=== PATIENT | female | born 1940 | race Caucasian/White ===

== ENCOUNTER 2019-04-06 20:45 | Inpatient (IN) | payer MEDICARE ==
[~2019-04-06] VITALS: Ht 172.7 cm; Wt 52.2 kg
--- NOTE | 2019-04-06 21:00 | NUR ---
GPS ADMISSION NOTE, RECEIVED PATIENT FROM [facility] [place] [facility]. PATIENT ARRIVED ON THIS UNIT AT 2100 VIA STRETCHER WITH 2 EMT ESCORTS. PATIENT ADMITTED ON A 5150 HOLD FOR DTS. PER HOLD PATIENT WAS BROUGHT IN [place] AFTER SHE TOLD HER PSYCHIATRIST THAT SHE IS TIRED OF LIFE AND WANTED TO KNOW WHAT MEDICATION SHE COULD USE TO END HER LIFE. PATIENT HAS BEEN DENYING SI BUT THEN PUT A PLASTIC BAG OVER HER HEAD IN AN APPARENT SUICIDE ATTEMPT WHILE IN THE CARE OF [facility]. PATIENT WAS UNABLE TO CONTRACT FOR SAFETY AT THAT TIME. THE 5150 WAS REVIEWED AND THE DOCUMENTATION IN THE 5150 HOLD APPEARS TO REFLECT THE PRESENTATION OF THE PATIENT. UPON FACE TO FACE ASSESSMENT PATIENT IS NOTED TO BEING HYPERVERBAL, DISHEVELED, DISORGANIZED, DEMANDING, COOPERATIVE, AND NEEDS REDIRECTION. PATIENT IS CURRENTLY LYING IN BED AWAKE, HAS NO S/S OR COMPLAINTS OF PAIN. PATIENT IS DISPLAYING NO S/S OF APPARENT DISTRESS. PATIENT BREATHING IS UNLABORED WITH EQUAL RISE AND FALL OF THE CHEST. PATIENT IS ALERT AND ORIENTATED X 3 ON ROOM AIR. PATIENT ASSISTED WITH TURING AND REPOSITIONING Q2HR AND PRN FOR COMFORT AND CIRCULATION. PATIENT HAS NO NEEDS AT THIS TIME. PATIENT DENIES SUICIDE IDEATIONS AND HOMICIDAL IDEATIONS AT THIS TIME. PATIENT REFUSED TO SIGNS ANY PAPER WORK AND THINKS THIS IS ALL A MISTAKE. PATIENT ADVISED OF HER HOLD AND PATIENT RIGHTS BOOKLET GIVEN. PATIENT IS UNDER THE PSYCHIATRIC CARE OF DR. BO AND THE MEDICAL CARE OF DR RÍOS. PATIENT BELONGINGS WERE INVENTORIED AND CHECKED FOR CONTRABAND. ALL CONTRABAND REMOVED AND STORED IN PATIENT HALLWAY LOCKER. PATIENT ADVANCED DIRECTIVES PREFERENCE, IMMUNIZATIONS QUESTIONER, NECESSARY PAPERWORK COMPLETED. PATIENT SKIN ASSESSMENT COMPLETED. PATIENT ORIENTATED TO ROOM, FLOOR, AND STAFF WITH ALL QUESTIONS ANSWERED. PATIENT EDUCATED ON THE USE OF THE CALL GALEANO. PATIENT BED SIDE RAILS ARE UP X 2 FOR SAFETY. PATIENT BED IS LOCKED, LOW AND I WILL CONTINUE TO MONITOR THIS PATIENT Q 15 MIN WITH THE HELP OF STAFF TO MAINTAIN SAFETY.
[2019-04-06] MEDS ORDERED: MAGNESIUM HYDROXIDE 30 ML UDC PO PRN (21:30)
[2019-04-06] MEDS ORDERED: MAG HYDROX/AL HYDROX/SIMETH 30 ML UDC PO PRN (21:30)
[2019-04-06] MEDS ORDERED: TRAZ-214 PO (21:52)
[2019-04-06] MEDS ORDERED: CARB200T PO (21:52)
[2019-04-06] MEDS ORDERED: AMLO5TAB4 PO (21:52)
[2019-04-06] MEDS ORDERED: ATEN25TA PO (21:52)
[2019-04-06] MEDS ORDERED: ATOR40TA PO (21:52)
[2019-04-06] MEDS ORDERED: GABA-534 PO (21:52)
[2019-04-06] MEDS ORDERED: LISI40TA4 PO (21:52)
[2019-04-06] MEDS ORDERED: ASPI-1169 PO (21:52)
[2019-04-06 22:40] VITALS: BP 142/92
[2019-04-06] MEDS: TEMAZEPAM 7.5 MG CAPSULE PO PRN (22:56)
--- NOTE | 2019-04-06 22:56 | NUR ---
GPS RN NOTE, PATIENT HAS A COMPLAINT OF NOT BEING ABLE TO SLEEP AND IS REQUESTING RESTORIL AT THIS TIME. PATIENT VITAL SIGNS ARE STABLE. GAVE RESTORIL 15 MG PO HS PRN ORDERED. WILL CONTINUE TO MONITOR THIS PATIENT.
[2019-04-06] MEDS: ACETAMINOPHEN 325 MG TABLET PO PRN (23:22)
--- NOTE | 2019-04-06 23:22 | NUR ---
GPS RN NOTE, PATIENT HAS A COMPLAINT LOWER BACK PAIN AT 3 OUT OF 10 ON THE PAIN SCALE AND IS REQUESTING TYLENOL AT THIS TIME. PATIENT VITAL SIGNS ARE STABLE. GAVE TYLENOL 650 MG Q6HR PRN ORDERED. WILL REASSESS FOR PAIN AND I WILL CONTINUE TO MONITOR THIS PATIENT.
[2019-04-06] MEDS: GABAPENTIN 300 MG CAPSULE PO SCH (23:56)
[2019-04-07 00:14] VITALS: BP 146/86
[2019-04-07] MEDS: clonazePAM 0.5 MG TABLET PO PRN ×4 (00:19→18:24)
--- NOTE | 2019-04-07 00:19 | NUR ---
GPS RN NOTE, PATIENT HAS A COMPLAINT OF FEELING ANXIOUS AND IS REQUESTING KLONOPIN AT THIS TIME. PATIENT VITAL SIGNS ARE STABLE. GAVE KLONOPIN 0.5MG PO Q4HR PRN ORDERED. WILL REASSESS FOR ANXIETY AND I WILL CONTINUE TO MONITOR THIS PATIENT.
[2019-04-07] MEDS: GABAPENTIN 300 MG CAPSULE PO SCH ×4 (06:00→23:05)
[2019-04-07 07:07] LABS: CHOLESTEROL 175 mg/dL (<200); HDL CHOLESTEROL 66 mg/dL (40-60); LDL 95 mg/dL (0-99); TRIGLYCERIDES 78 mg/dL (30-150)
[2019-04-07 07:09] LABS: BASOPHILS % (AUTO) 0.3 % (0.0-2.0); EOSINOPHILS % (AUTO) 3.6 % (0.0-6.0); HEMATOCRIT 34 % (33-45); HEMOGLOBIN 11.4 g/dL (11.5-14.8); LYMPHOCYTES # (AUTO) 2.1 /CMM (0.8-4.8); LYMPHOCYTES % (AUTO) 37.3 % (20.0-44.0); MEAN CORPUSCULAR HGB CONC 34 g/dl (31.0-36.0); MEAN CORPUSCULAR VOLUME 94 fL (82-100); MONOCYTES # (AUTO) 0.8 /CMM (0.1-1.30); MONOCYTES % (AUTO) 13.8 % (2.0-12.0); NEUTROPHILS # (AUTO) 2.5 /CMM (1.8-8.9); PLATELET COUNT (AUTO) 301 /CMM (150-450); RED BLOOD CELL COUNT(AUTO) 3.56 MIL/uL (4.0-5.2); WHITE BLOOD COUNT (AUTO) 5.6 K/uL (4.3-11.0)
[2019-04-07 07:19] LABS: ALANINE AMINOTRANSFERASE 34 U/L (12-78); ALBUMIN 3.1 g/dL (3.4-5.0); ALKALINE PHOSPHATASE 120 U/L (46-116); ASPARTATE AMINOTRANSFERASE 29 U/L (15-37); BILIRUBIN,TOTAL 0.5 mg/dL (0.2-1.0); CALCIUM, SERUM 8.8 mg/dL (8.5-10.1); CARBON DIOXIDE 25 mmol/L (21-32); CHLORIDE 105 mmol/L (98-107); CREATININE 0.9 mg/dL (0.6-1.3); GLUCOSE 99 mg/dL (74-106); MAGNESIUM 2.1 mg/dL (1.8-2.4); PHOSPHORUS 3.5 mg/dL (2.5-4.9); POTASSIUM 4.2 mmol/L (3.5-5.1); SODIUM SERUM 140 mmol/L (136-145); TOTAL PROTEIN, SERUM 6.1 g/dL (6.4-8.2); UREA NITROGEN, BLOOD 11 mg/dL (7-18)
[2019-04-07 08:00] VITALS: BP 132/67
[2019-04-07] MEDS: CARBAMAZEPINE 200 MG TABLET PO SCH ×2 (08:56→21:15)
[2019-04-07] MEDS: ATENOLOL 25 MG TABLET PO SCH (08:57)
[2019-04-07] MEDS: AMLODIPINE BESYLATE 5 MG TABLET PO SCH (08:57)
[2019-04-07] MEDS: LISINOPRIL (20MG) 20 MG TABLET PO SCH (08:58)
[2019-04-07] MEDS: ASPIRIN 81 MG TAB.CHEW PO SCH (08:58)
--- NOTE | 2019-04-07 11:06 | NUR ---
WOUND CARE CONSULT: PT PRESENTS WITH LEFT ARM SKIN TEAR, FACIAL BRUISING AND DRY SCABS AND BRUISES TO EXTREMITIES, PRESENT ON ADMISSION. RECOMMENDATIONS MADE FOR SKIN PROTECTION AND WOUND CARE. DISCUSSED WITH NURSING STAFF. PT IS AMBULATORY AND CONTINENT. WILL SEE PRN. KATE IN AGREEMENT WITH PLAN OF CARE. Addendum: 04/07/19 at 1108 by LOVE TURCIOS WNDNU Amended: Links added.
--- NOTE | 2019-04-07 15:47 | NUR ---
SW called the pt's friend, Lulu ([phone]), who stated that she is going to be out of town for the next week and that she would like to be involved in the treatment. She also stated that the pt has a cable former friend who would be willing to pick her up and drop her off.
--- NOTE | 2019-04-07 15:48 | NUR ---
Initial Discharge Plan: Pt currently resides at her apartment alone located at [address] [place] [address], [facility], [place] [address]; ([phone]). Per pt, she would like to return to her home. SW will work with the pt and the MD regarding appropriate discharge planning. SW will form a safe and proper discharge.
[2019-04-07 16:00] VITALS: BP 102/69
[2019-04-07] MEDS: ESCITALOPRAM OXALATE (10 MG) 10 MG TABLET PO SCH (16:53)
[2019-04-07] MEDS: ACETAMINOPHEN 325 MG TABLET PO PRN (18:24)
[2019-04-07 19:48] VITALS: BP 121/71
[2019-04-07] MEDS: OLANZAPINE 10 MG TABLET PO SCH (21:16)
[2019-04-07] MEDS: ATORVASTATIN 40 MG TABLET PO SCH (21:16)
--- NOTE | 2019-04-07 23:11 | NUR ---
AWAKE, TOOK HER NIGHT MEDICATIONS/WHOLE PILLS. NO APPARENT DISTRESS NOTED. WILL CONTINUE TO MONITOR Q 15 MINS. FOR SAFETY AND BEHAVIOR. CALM, COOPERATIVE, DEPRESSED. DENIES SI/HI.
--- NOTE | 2019-04-08 00:16 | NUR ---
REPORT GIVEN TO JULIAN RAMIREZ FOR CONTINUITY OF CARE.
[2019-04-08] MEDS: GABAPENTIN 300 MG CAPSULE PO SCH ×3 (06:05→17:09)
--- NOTE | 2019-04-08 06:30 | NUR ---
PAGED DR. RÍOS ORDERED RIGHT HAND X-RAY. NOTED AND CARRIED OUT. WILL CONTINUE TO MONITOR.
[2019-04-08 08:00] VITALS: BP 110/64
[2019-04-08] MEDS: ASPIRIN 81 MG TAB.CHEW PO SCH (08:43)
[2019-04-08] MEDS: CARBAMAZEPINE 200 MG TABLET PO SCH ×2 (08:43→20:36)
[2019-04-08] MEDS: ESCITALOPRAM OXALATE (10 MG) 10 MG TABLET PO SCH (08:43)
[2019-04-08] MEDS: LISINOPRIL (20MG) 20 MG TABLET PO SCH (08:46)
[2019-04-08] MEDS: AMLODIPINE BESYLATE 5 MG TABLET PO SCH (08:46)
[2019-04-08] MEDS: ATENOLOL 25 MG TABLET PO SCH (08:46)
--- NOTE | 2019-04-08 10:00 | NUR ---
GPS/RN-NOTES DID WOUND TREATMENT ON THE LEFT HAND ORDERED.PATIENT REFUSED THE MILITARY PAY TECHNICIAN TO CLEAN HER LEFT CHICKS WOUND. STATED" LEAVE IT ALONE I DON'T WANT YOU TO TOUCH OR DO ANYTHING ON MY FACE". CHARGE NURSE AWARE.
[2019-04-08] MEDS: ACETAMINOPHEN 325 MG TABLET PO PRN (10:13)
--- NOTE | 2019-04-08 10:17 | NUR ---
GPS/RN-NOTES PATIENT REQUESTING TYLENOL FOR HEADACHE. TYLENOL 650MG P.O GIVEN PRN ORDER. WILL CONT. MONITORING FOR SAFETY.
[2019-04-08 16:00] VITALS: BP 157/75
--- NOTE | 2019-04-08 16:43 | NUR ---
GPS/RN-NOTES KEVIN MUSE IN THE UNIT AND MADE AWARE OF THE RESULTS OF RIGHT HAND X-RAY. Addendum: 04/08/19 at 1821 by XAVIER THEODORE RN IN ADDITION TO MY ABOVE NOTES. RECEIVED T.O ORDER FROM KEVIN MUSE TO LET OT APPLY SPLINT FOR THE PATIENT .NOTED AND CARRIED OUT,OT CONSULT ORDERED.
--- NOTE | 2019-04-08 17:00 | NUR ---
GPS/RN-NOTES PATIENT REFUSED TO HAVE SPLINT ON THE RIGHT HAND DESPITE EXPLANATIONS RISK AND BENEFITS. STATED" I DON'T WAND YOU TO PUT SPLINT IN MY HAND ". OFFERED X3.CHARGE NURSE AND KEVIN MUSE MADE AWARE.
[2019-04-08 19:48] VITALS: BP 148/89
[2019-04-08] MEDS: OLANZAPINE 10 MG TABLET PO SCH (21:07)
[2019-04-08] MEDS: ATORVASTATIN 40 MG TABLET PO SCH (21:07)
[2019-04-09] MEDS: GABAPENTIN 300 MG CAPSULE PO SCH ×4 (02:26→17:41)
[2019-04-09] MEDS: ACETAMINOPHEN 325 MG TABLET PO PRN (04:57)
[2019-04-09 08:00] VITALS: BP 137/73
[2019-04-09] MEDS: AMLODIPINE BESYLATE 5 MG TABLET PO SCH (08:24)
[2019-04-09] MEDS: ASPIRIN 81 MG TAB.CHEW PO SCH (08:25)
[2019-04-09] MEDS: CARBAMAZEPINE 200 MG TABLET PO SCH ×2 (08:25→21:22)
[2019-04-09] MEDS: ESCITALOPRAM OXALATE (10 MG) 10 MG TABLET PO SCH (08:25)
[2019-04-09] MEDS: LISINOPRIL (20MG) 20 MG TABLET PO SCH (08:25)
[2019-04-09] MEDS: ATENOLOL 25 MG TABLET PO SCH (08:25)
--- NOTE | 2019-04-09 10:12 | NUR ---
GPS/RN NOTES PATIENT FOUND BY NURSE NU JACKSON WHILE SITTING ON THE HALLWAY IN FRONT OF HER ROOM AND NOTED WITH BLEEDING LACERATION ON HER CHIN AND RIGHT ELBOW SKIN TEAR. APPLIED PRESSURE GAUZE TO CHIN THEN PLACED STERILE STRIPS. LACERATION ON CHIN MEASURED 3 CM X 0.5CM DEEP AND RIGHT ELBOW SKIN TEAR MEASURED 1CM. PT UN-ABLE TO SAY HOW THE INCIDENT HAPPEN AND JUST STATED THAT SHE WANTS TO GO HOME. SIMRAN MUSE MADE AWARE WITH ORDER TO DO 'STAT' CT SCAN OF HEAD W/O CONTRAST THEN BRING PT TO E.R. TO SUTURE THE CUT ON HER CHIN AND 1:1 SITTER FOR CLOSE MONITORING. PSYCH DR EARL ON UNIT AND MADE AWARE. NURSE ADMINISTRATION CLERK NOTIFIED. WILL CONTINUE TO CLOSELY MONITOR PT.
--- NOTE | 2019-04-09 10:48 | NUR ---
RN NOTES PATIENT ACCOMPANIED/BROUGHT TO CT DEPT FOR CT OF HEAD W/O CONTRAST. AFTER CT SCAN DONE, PT TAKEN TO E.R. FOR LACERATION OF CHIN SUTURING. PT LEFT IN E.R. WITH CLASSIFIER WITH HER.
--- NOTE | 2019-04-09 12:15 | NUR ---
RN NOTES CT of head showed no intracranial hemorrhage, appreciable cerebral contusion, hydrocephalus, or cerebral infarction. Mild age related microvascular change. No depressed skull fracture. Vipul Baez made aware. Friend Jyoti called at tel # [phone] and informed about the incident.
--- NOTE | 2019-04-09 12:58 | NUR ---
RN NOTES PT RETURNED FROM E.R. ACCOMPANIED BY DELINQUENCY PREVENTION OFFICER. PT HAD SUTURED ON CHIN WITH SEVEN STITCHES COVERED WITH DRESSING, NO ACTIVE BLEEDING NOTED. WILL CONTINUE TO MONITOR.
[2019-04-09] MEDS: clonazePAM 0.5 MG TABLET PO PRN (14:34)
[2019-04-09 16:00] VITALS: BP 102/63
--- NOTE | 2019-04-09 16:10 | NUR ---
RN-CO: Patient remains uncooperative, restless and tried to walk around and refused to use walker.
[2019-04-09 20:00] VITALS: BP 101/49
[2019-04-09] MEDS: ATORVASTATIN 40 MG TABLET PO SCH (21:22)
[2019-04-09] MEDS: OLANZAPINE 10 MG TABLET PO SCH (21:22)
[2019-04-10] MEDS: GABAPENTIN 300 MG CAPSULE PO SCH ×4 (01:03→17:47)
[2019-04-10 08:00] VITALS: BP 106/58
[2019-04-10] MEDS: ESCITALOPRAM OXALATE (10 MG) 10 MG TABLET PO SCH (08:59)
[2019-04-10] MEDS: ASPIRIN 81 MG TAB.CHEW PO SCH (09:00)
[2019-04-10] MEDS: clonazePAM 0.5 MG TABLET PO PRN ×2 (09:00→14:08)
[2019-04-10] MEDS: CARBAMAZEPINE 200 MG TABLET PO SCH ×2 (09:00→21:10)
[2019-04-10] MEDS: ATENOLOL 25 MG TABLET PO SCH (09:00)
[2019-04-10] MEDS: LISINOPRIL (20MG) 20 MG TABLET PO SCH (09:00)
[2019-04-10] MEDS: AMLODIPINE BESYLATE 5 MG TABLET PO SCH (09:00)
--- NOTE | 2019-04-10 09:37 | NUR ---
WOUND CARE CONSULT: PT SEEN FOR CHIN LACERATION WHICH WAS SUTURED. NO SIGN OF INFECTION NOTED BUT SCANT AMOUNT OF PINK DRAINAGE NOTED, NO DRAINAGE. MEPILEX DRESSING IN USE. RECOMMEND SURGICAL CONSULT. DR MORAN NOTIFIED OF CONSULT REQUEST. RECOMMENDATIONS MADE FOR SKIN PROTECTION. DISCUSSED WITH NURSING STAFF. WILL SEE PRN. KATE IN AGREEMENT WITH PLAN OF CARE. Addendum: 04/10/19 at 1058 by LOVE TURCIOS WNDNU ALSO RT ELBOW SKIN TEAR NOTED. RECOMMENDATIONS MADE FOR WOUND CARE AND SKIN PROTECTION. DISCUSSED WITH NURSING STAFF.
--- NOTE | 2019-04-10 09:37 | NUR ---
RN-CO: Patient remains restless, per sitter, she walked her to the bathroom and started to run and focus on discharge.
[2019-04-10] MEDS ORDERED: NEOMY SULF/BACITRAC ZN/POLY 15 GM TUBE TP PRN (14:00)
--- NOTE | 2019-04-10 14:12 | NUR ---
SW called pt's friend, Jyoti Andre ([phone]), and informed her that the SW would like to discuss the pt's discharge plan with her. She stated that she agrees that the pt is not safe at home and that she needs additional assistance. JOHN stated that the plan is to refer the pt to a group home or have a red cross worker for her in the home.
--- NOTE | 2019-04-10 15:00 | NUR ---
GROUP NOTE: Pt attended group on this present day discussing the topic of discharge planning. S: "I want to go home I have a lot of friends who can take care of me." O: pt was sitting in [employer] asking to be let out, pt was anxious and irritable and unable to focus on group topic as she kept asking SW to get her wallet out of the safe. A: Pt appeared to have lack of insight into her current situation. Pt in denial and states she is able to care for her self. Pt is a fall risk and has fallen while on the unit. Pt refuses SNF placement. P: Pt will continue milieu treatment and medication stabilization.
[2019-04-10 16:00] VITALS: BP_SYST 136; BP_SYST 98; BP_DIAS 53; BP_DIAS 56
--- NOTE | 2019-04-10 16:02 | NUR ---
0700 RECIEVED PT IN HER DINNER ROOM AT [facility] IN STABLE CONDITION DENIED ANY PAIN OR DISCOMFORT. PT HAS A SITTER, DUE TO PT UNSTABLE, PT FALL LAST NIGHT. 1600 PT TOOK HER MEDICATION AND COMPLAIN OF GETTING TO BED TO SLEEP, JAYY THE SITTER TOOK PT TO HER ROOM, PT SLEPT 4 HOURS, AND BOUGHT OUT TO THE DINNER ROOM, PT WAS BACK IN HER ROOM SPEND AN HOUR, PT WAS VERY UNSTABLE COULDNT WALK VERY WELL ALMOST FALL IN HER ROOM, THE SITTER CALLED OUT FOR HELP, PT PUT BACK TO [facility], PT STARTED COMPLAINING SAYING THAT SHE WANT TO GET OUT OFF THE CHAIR, DR MELO CAME AND ASSESS THE PT TOLD PT THAT SHE HAS TO BE IN THE CHAIR, DR MELO TOLD HER THAT SHE FALL YESTERDAY. I SPOKE TO CHARGE NURSE LO REGARDING PT COMPLAINING OF GETTING OFF THE BUDDY CHAIR, LO INSTRUCTED TO KEEP HER IN THE CHAIR UNTIL SHE IS VERY STABLE TO WALK. PT WAS VERY UNSTABLE TO WALK AND NEED ASSISSTANCE
[2019-04-10 20:07] VITALS: BP 132/75
[2019-04-10] MEDS: OLANZAPINE 10 MG TABLET PO SCH (21:10)
[2019-04-10] MEDS: ATORVASTATIN 40 MG TABLET PO SCH (21:10)
[2019-04-11] MEDS: GABAPENTIN 300 MG CAPSULE PO SCH ×4 (00:17→17:01)
[2019-04-11 08:00] VITALS: BP 106/68
[2019-04-11] MEDS: ESCITALOPRAM OXALATE (10 MG) 10 MG TABLET PO SCH (08:15)
[2019-04-11] MEDS: CARBAMAZEPINE 200 MG TABLET PO SCH ×2 (08:15→21:08)
[2019-04-11] MEDS: ASPIRIN 81 MG TAB.CHEW PO SCH (08:15)
[2019-04-11] MEDS: LISINOPRIL (20MG) 20 MG TABLET PO SCH (08:18)
[2019-04-11] MEDS: AMLODIPINE BESYLATE 5 MG TABLET PO SCH (08:18)
--- NOTE | 2019-04-11 08:18 | NUR ---
JULIAN NOTE: 0900 BP MEDS HELD D/T BP 112/74 P 86. ONLY GIVEN METOPROLOL Addendum: 04/11/19 at 0821 by MARGO ROMANO RN CORRECTION: ATENOLOL WAS GIVEN, NOT METOPROLOL
[2019-04-11] MEDS: ATENOLOL 25 MG TABLET PO SCH (08:20)
--- NOTE | 2019-04-11 14:16 | NUR ---
JOHN called Candace Lui ([phone]) from [facility] to set up transportation and she stated that she would call the SW back.
[2019-04-11 16:00] VITALS: BP 95/55
[2019-04-11 20:10] VITALS: BP 118/59
[2019-04-11] MEDS: OLANZAPINE 10 MG TABLET PO SCH (21:08)
[2019-04-11] MEDS: ATORVASTATIN 40 MG TABLET PO SCH (22:28)
[2019-04-11] MEDS: TEMAZEPAM 7.5 MG CAPSULE PO PRN (22:32)
[2019-04-12] MEDS: GABAPENTIN 300 MG CAPSULE PO SCH ×4 (00:35→17:53)
[2019-04-12 08:00] VITALS: BP 108/62
[2019-04-12] MEDS: CARBAMAZEPINE 200 MG TABLET PO SCH ×2 (08:27→20:47)
[2019-04-12] MEDS: ASPIRIN 81 MG TAB.CHEW PO SCH (08:27)
[2019-04-12] MEDS: ESCITALOPRAM OXALATE (10 MG) 10 MG TABLET PO SCH (08:27)
--- NOTE | 2019-04-12 08:31 | NUR ---
RN-CO: Instructed the sitter to walk the patient as patient request. Patient is focused on discharge.
[2019-04-12] MEDS: LISINOPRIL (20MG) 20 MG TABLET PO SCH (08:51)
[2019-04-12] MEDS: ATENOLOL 25 MG TABLET PO SCH (08:51)
[2019-04-12] MEDS: AMLODIPINE BESYLATE 5 MG TABLET PO SCH (08:51)
--- NOTE | 2019-04-12 09:10 | NUR ---
PC Hearing Notification: SW called pt's friend, Jyoti Andre ([phone]), and informed her that the pt is going to have a PC Hearing and that may determine whether or not the pt is appropriate for her hold. She stated that she would like to be informed of the results.
--- NOTE | 2019-04-12 09:30 | NUR ---
RN-CO: Patient is in denial that she needs help in [place] and that she is a fall risk. Explained to her that she always needs to call if she needs help.
--- NOTE | 2019-04-12 14:17 | NUR ---
JOHN faxed a referral to [facility] to the fax number: [phone].
--- NOTE | 2019-04-12 14:21 | NUR ---
JOHN called pt's friend, Jyoti Andre ([phone]), and informed her about the debt recovery officer's decision of the hold being upheld. JOHN then informed the pt's friend that the discharge is either or Wednesday and a SNF is the recommended discharge plan.
[2019-04-12 16:00] VITALS: BP 106/59
[2019-04-12 19:54] VITALS: BP 125/75
[2019-04-12] MEDS: OLANZAPINE 10 MG TABLET PO SCH (21:04)
[2019-04-12] MEDS: ATORVASTATIN 40 MG TABLET PO SCH (21:04)
[2019-04-12] MEDS: TEMAZEPAM 7.5 MG CAPSULE PO PRN (22:43)
[2019-04-13] MEDS: GABAPENTIN 300 MG CAPSULE PO SCH ×2 (00:18→06:10)
[2019-04-13 08:00] VITALS: BP 112/65
[2019-04-13] MEDS: ESCITALOPRAM OXALATE (10 MG) 10 MG TABLET PO SCH (08:52)
[2019-04-13] MEDS: clonazePAM 0.5 MG TABLET PO PRN (08:52)
[2019-04-13] MEDS: ASPIRIN 81 MG TAB.CHEW PO SCH (08:52)
[2019-04-13] MEDS: LISINOPRIL (20MG) 20 MG TABLET PO SCH (08:52)
[2019-04-13] MEDS: CARBAMAZEPINE 200 MG TABLET PO SCH (08:52)
[2019-04-13 08:53] VITALS: BP 125/75
[2019-04-13] MEDS: AMLODIPINE BESYLATE 5 MG TABLET PO SCH (08:53)
[2019-04-13] MEDS: ATENOLOL 25 MG TABLET PO SCH (08:53)
--- NOTE | 2019-04-13 10:15 | NUR ---
JOHN called pt's friend, Jyoti Andre ([phone]), and informed her that the pt was accepted to [facility] which is a [facility] and that the pt had accepted this discharge placement. JOHN informed her that the pt is going to be discharged today around 1pm.
--- NOTE | 2019-04-13 10:53 | NUR ---
JOHN faxed updated notes to [facility] to the fax number: [phone].
--- NOTE | 2019-04-13 11:33 | NUR ---
DR. BO GAVE NA ORDER TO D/C HOLD AND D/C TO [facility], TO CONTINUE SAME MEDS INCLUDING PRN AND TO FOLLOW UP WITH PSYCH AND MEDICAL DOCTORS. PT. WITHOUT DISTRESS, DENIES SUICIDAL AND HOMICIDAL. JIMI WALKER (MANAGED SERVICES CONSULTANT) MADE AWARE OF THE DISCHARGE AND RECONCILED MEDS. BELONGINGS READY AND DISCHARGE PAPERS READY.
--- NOTE | 2019-04-13 11:57 | NUR ---
REPORT GIVEN TO TOR OVER THE FACILITY.
--- NOTE | 2019-04-13 12:26 | NUR ---
NURSE NOTE PT D/C BACK TO FACILITY IN STABLE CONDITION, DENIED SI, ALL BELONGERS AND MEDICATION SEND BACK WITH THE PATIENT,
--- NOTE | 2019-04-13 14:24 | NUR ---
Discharge Note: Pt was discharged to [facility] ([facility]) located at [address] [place] [id number]; ([phone]). Pt was transported via [facility] at 1PM. Pts friend, Jyoti ([phone]), was informed and made aware of this discharge. Upon discharge, the pt appeared to be in a depressed mood and presented with a distressed affect. She stated that she wanted to return to her home and the SW stated that she will once she stabilizes further at the skilled nursing. Pt denied both suicidal and homicidal ideation as well as auditory and visual hallucinations. Pt will be under the care of her psychiatrist, Dr. Farfan, located at [address] [place] [address]; and her clinical editor, Dr. Hummel, located at [address] [place] [address] [id number], [place] [address]; .
== END 2019-04-13 12:25 | DRG 885 ==
LOC: GPS 20:45
PROVIDERS: ADMIT Psychiatry & Neurology Psychiatry; ATTEND Nurse Practitioner Acute Care
PROC: 0HQ1XZZ Repair Face Skin, External Approach (ICD-10-PCS; principal; 2019-04-09)
DX: F31.60 Bipolar disorder, current episode mixed, unspecified (principal); E44.0 Moderate protein-calorie malnutrition; Z68.1 Body mass index [BMI] 19.9 or less, adult; F29 Unspecified psychosis not due to a substance or known physiological condition; I10 Essential (primary) hypertension; K21.9 Gastro-esophageal reflux disease without esophagitis; M06.9 Rheumatoid arthritis, unspecified; Z91.5 Personal history of self-harm; E88.09 Other disorders of plasma-protein metabolism, not elsewhere classified; W18.30XA Fall on same level, unspecified, initial encounter; Y93.9 Activity, unspecified; S50.311A Abrasion of right elbow, initial encounter; S50.812A Abrasion of left forearm, initial encounter; S50.811A Abrasion of right forearm, initial encounter; S01.81XA Laceration without foreign body of other part of head, initial encounter; S62.302A Unspecified fracture of third metacarpal bone, right hand, initial encounter for closed fracture; Y92.009 Unspecified place in unspecified non-institutional (private) residence as the place of occurrence of the external cause; Z91.81 History of falling; Y92.230 Patient room in hospital as the place of occurrence of the external cause
CPT/HCPCS: 36415; 70450-TC; 73130-TC; 80053-TC; 80061-TC; 83735-TC; 84100-TC; 84443-TC; 85025-TC; 87081-TC; 97112-TC; 97116-TC; 97530-TC; 97535-TC

== ENCOUNTER 2019-04-09 11:14 | Emergency (ER) | payer MEDICARE ==
[~2019-04-09] VITALS: Ht 172.7 cm; Wt 72.1 kg
[~2019-04-09 11:14] MED LIST: AMLO5TAB4 PO; ASPI-1169 PO; ATEN25TA PO; ATOR40TA PO; CARB200T PO; GABA-534 PO; LISI40TA4 PO; TRAZ-214 PO
[2019-04-09 11:18] VITALS: BP 110/68
[2019-04-09] MEDS ORDERED: LIDOCAINE 1%-EPI 1:100,000 20 ML VIAL TP ONE (11:30)
[2019-04-09] MEDS ORDERED: LIDOCAINE 1%-EPI 1:100,000 20 ML VIAL ONE (11:34)
--- NOTE | 2019-04-09 13:00 | NUR ---
SUTURE DONE ON CHIN, COVERED WITH BANDAGE. PATIENT IN STABLE CONDITION. CT READ BY DR. KEARNS AND STATED PATIENT OK TO GO BACK TO [facility].
== END 2019-04-09 13:03 | disposition other institution (70) ==
LOC: ER 11:14
DX: S01.81XA Laceration without foreign body of other part of head, initial encounter (principal); S05.12XA Contusion of eyeball and orbital tissues, left eye, initial encounter; I10 Essential (primary) hypertension; Z79.82 Long term (current) use of aspirin; W18.30XA Fall on same level, unspecified, initial encounter; Y93.89 Activity, other specified; Y92.89 Other specified places as the place of occurrence of the external cause; Y99.8 Other external cause status
CPT/HCPCS: 12013; 99285; A6403; J3490; 70450-TC